=== PATIENT | female | born 1990 | race African-American/Black ===

== ENCOUNTER 2022-02-19 06:11 | Emergency (ER) | payer SELFPAY ==
[2022-02-19] MEDS ORDERED: Dexamethasone 10 MG/ML VIAL ONE (06:57)
[2022-02-19] MEDS ORDERED: Ondansetron ODT 4 MG TAB ONE (06:57)
[2022-02-19] MEDS ORDERED: Ibuprofen 800 MG TAB ONE (06:57)
[2022-02-19 08:26] LABS: SARS-CoV-2 NAA Rapid Test Not Detected (NotDetected)
== END 2022-02-19 08:34 | disposition home or self-care (01) ==
LOC: ERS 06:11
DX: J02.0 Streptococcal pharyngitis (principal); Z20.822 Contact with and (suspected) exposure to COVID-19
CPT/HCPCS: 87430; 99283; J1100; Q0162

== ENCOUNTER 2023-01-16 18:33 | Emergency (ER) | payer OTHER ==
[2023-01-16] MEDS ORDERED: Ketorolac Tromethamine 30 MG/ML VIAL ONE (18:59)
[2023-01-16] MEDS ORDERED: hydrALAZINE 25 MG TAB ONE (19:23)
== END 2023-01-16 20:24 | disposition home or self-care (01) ==
LOC: ERS 18:33
DX: S93.402A Sprain of unspecified ligament of left ankle, initial encounter (principal); I10 Essential (primary) hypertension; V43.52XA Car driver injured in collision with other type car in traffic accident, initial encounter
CPT/HCPCS: 96372; J1885